=== PATIENT | female | born 1955 | race Caucasian/White ===

== ENCOUNTER 2016-05-31 08:42 | Emergency (ER) | payer SELFPAY ==
[~2016-05-31] VITALS: Ht 165.1 cm; Wt 70.0 kg
[~2016-05-31 08:42] MED LIST: ABIL5TAB6 PO; CLONAZEPAM PO; DILA2TAB2; PREG75 PO; SERT100 PO; VITA100018 PO
[2016-05-31 08:46] VITALS: BP 120/59; PULSE 77; RESP 20; TEMP 98.1; O2SAT 95
--- NOTE | 2016-05-31 08:50 | PD ---
Physical Exam Date Seen by Provider: May 31, 2016 Time Seen by Provider: 08:46 Narrative Pt is a 61 year old female presenting to the ED with c/o rash. Pt states her skin is itchy and burning. It started under her breasts, and has had a similar rash in the past. Pt has been using clotrimazole but states despite that it has gotten worse. Skin is weeping and raw. VSS, awaiting bed placement. Pt has no other complaints at this time. MDM Supervised Visit with SHANT: Casie Mena May 31, 2016 08:50
[2016-05-31] MEDS ORDERED: CLON0.5T PO (09:13)
[2016-05-31] MEDS ORDERED: ABIL30TA2 PO (09:13)
[2016-05-31] MEDS ORDERED: SERT-129 PO (09:13)
[2016-05-31] MEDS ORDERED: ARCA75CA INH (09:13)
[2016-05-31] MEDS ORDERED: CELE1CAP8 PO (09:13)
[2016-05-31] MEDS ORDERED: DILA2TAB2 PO (09:13)
[2016-05-31] MEDS ORDERED: [UNRECOGNIZED DRUG - OTHER] INH (09:13)
[2016-05-31] MEDS ORDERED: [UNRECOGNIZED DRUG - OTHER] INH (09:14)
[2016-05-31] MEDS ORDERED: FLUCONAZOLE 100 MG TAB PO ONE (09:30)
[2016-05-31] MEDS ORDERED: CEPHALEXIN MONOHYDRATE 500 MG CAP PO ONE (09:30)
[2016-05-31] MEDS ORDERED: CEPH-460 PO (09:38)
[2016-05-31] MEDS ORDERED: NYST10007 TOPICAL (09:38)
[2016-05-31] MEDS ORDERED: FLUC100T2 PO (09:38)
--- NOTE | 2016-05-31 09:38 | PD ---
HPI Chief Complaint: Skin Problem Time Seen by Provider: 09:14 Travel History International Travel<30 days: Yes Contact w/Intl Traveler<30days: [place] Traveled to: [email or web address] Traveled to known affect area: No History of Present Illness HPI Is a 61-year-old woman who presents to the emergency department complaining of painful irritated rash underneath her breasts. She does history of similar symptoms in the past. Rash is been ongoing for couple weeks been getting steadily worse. She describes painful weeping underneath the breasts. She's been using some antifungal cream without significant improvement. History Past Medical History Narrative Medical COPD Chronic back pain Tetanus Vaccination: < 5 Years Influenza Vaccination: Yes : 3 Para: 2 Social History Alcohol Use: No Tobacco Use: Yes (1/2 PACK DAILY) Allergies-Medications (Allergen,Severity, Reaction): Coded Allergies: No Known Allergies (Unverified , 12/14/11) Reported Meds & Prescriptions Reported Meds & Active Scripts Active Nystop Topical (Nystatin Topical) 100,000 Unit/Gm Powd 1 Applic TOPICAL Q12HR Keflex (Cephalexin) 500 Mg Cap 500 Mg PO Q8H Fluconazole 100 Mg Tab 100 Mg PO DAILY 28 Days Reported [karsten-salbutamol] 1 Inhaler INH QID [glycopyrronium] 1 Inhaler INH DAILY Arcapta Neohaler Inh (Indacaterol Powder Inh) 75 Mcg Cap 1 Inhaler INH DAILY Dilaudid (Hydromorphone HCl) 2 Mg Tab 2 Mg PO Q4H PRN Abilify (Aripiprazole) 30 Mg Tab 75 Mg PO TID Clonazepam 0.5 Mg Tab 0.5 Mg PO QID Celecoxib 200 Mg Cap 200 Mg PO DAILY Sertraline (Sertraline HCl) 100 Mg Tab 100 Mg PO DAILY Review of Systems Except as stated in HPI: all other systems reviewed are Neg Physical Exam Narrative GENERAL: 60 year-old woman, generally well-appearing, no acute distress. SKIN: Examination of the skin of the breast and chest reveals extensive maceration underneath both breasts with extensive erythema and redness spreading to the entirety of low breasts with tenderness, satellite lesions, draining fluid. CARDIOVASCULAR: Warm and well perfused. RESPIRATORY: Normal rate and effort. GASTROINTESTINAL: Abdomen soft, non-tender, nondistended. Hepatic and splenic margins not palpable. MUSCULOSKELETAL: No obvious deformities. Data Data Last Documented VS Vital Signs Date Time Temp Pulse Resp B/P Pulse Ox O2 Delivery O2 Flow Rate FiO2 05/31/16 08:46 98.1 77 20 120/59 95 Orders Fluconazole (Diflucan) (05/31/16 09:30) Cephalexin (Keflex) (05/31/16 09:30) Complete Blood Count With Diff (05/31/16 09:25) Basic Metabolic Panel (Bmp) (05/31/16 09:25) Iv Access Insert/Monitor (05/31/16 09:25) Labs Laboratory Tests Test 05/31/16 09:30 White Blood Count 16.8 TH/MM3 Red Blood Count 5.11 MIL/MM3 Hemoglobin 15.0 GM/DL Hematocrit 45.1 % Mean Corpuscular Volume 88.4 FL Mean Corpuscular Hemoglobin 29.4 PG Mean Corpuscular Hemoglobin 33.3 % Concent Red Cell Distribution Width 15.2 % Platelet Count 224 TH/MM3 Mean Platelet Volume 8.6 FL Neutrophils (%) (Auto) 88.4 % Lymphocytes (%) (Auto) 7.3 % Monocytes (%) (Auto) 3.1 % Eosinophils (%) (Auto) 0.7 % Basophils (%) (Auto) 0.5 % Neutrophils # (Auto) 14.8 TH/MM3 Lymphocytes # (Auto) 1.2 TH/MM3 Monocytes # (Auto) 0.5 TH/MM3 Eosinophils # (Auto) 0.1 TH/MM3 Basophils # (Auto) 0.1 TH/MM3 CBC Comment DIFF FINAL Differential Comment Sodium Level 139 MEQ/L Potassium Level 3.9 MEQ/L Chloride Level 103 MEQ/L Carbon Dioxide Level 30.2 MEQ/L Anion Gap 6 MEQ/L Blood Urea Nitrogen 12 MG/DL Creatinine 1.02 MG/DL Estimat Glomerular Filtration 55 ML/MIN Rate Random Glucose 120 MG/DL Calcium Level 8.5 MG/DL [facility] Medical Decision Making Medical Screen Exam Complete: Yes Emergency Medical Condition: Yes Interpretation(s) CBC remarkable for white count of 16.8 thousand BMP generally unremarkable. Differential Diagnosis Intertrigo, cellulitis, vasculitis, other Narrative Course Medical decision making INITIAL: 60 year-old woman presents to the emergency department what appears to be very extensive candidal intertrigo spreading out to the breast. She also has small lesions on her arms and legs. Blood sugar is normal. We'll check labs, treat with Keflex, fluconazole, nystatin powder, and will bring her back in 48 hours for wound check. Diagnosis Primary Impression: Candidal intertrigo Additional Instructions: Take Keflex and fluconazole as prescribed. Imperative to keep the underside of your breast dry. Use nystatin powder. Return to the emergency department or follow-up with your primary doctor in 48 hours for repeat wound check. Med/Other Pt SpecificInfo: Prescription(s) given Scripts Nystatin Topical (Nystop Topical)100,000 Unit/Gm Powd1 Applic TOPICAL Q12HR # 60 GM Ref 0 Prov:Cristhian Trujillo MD 05/31/16 Cephalexin (Keflex)500 Mg [id number] Mg PO Q8H #30 CAP Ref 0 Prov:Cristhian Trujillo MD 05/31/16 Fluconazole 100 Mg [id number] Mg PO DAILY 28 Days Ref 0 Prov:Cristhian Trujillo MD 05/31/16 Disposition: 01 DISCHARGE HOME Condition: Stable Cristhian Trujillo MD May 31, 2016 09:38
[2016-05-31 09:44] LABS: AUTOMATED NEUTROPHIL # 14.8 TH/MM3 (1.8-7.7); BASOPHIL # 0.1 TH/MM3 (0-0.2); BASOPHIL % 0.5 % (0.0-2.0); EOSINOPHIL # 0.1 TH/MM3 (0-0.4); EOSINOPHIL % 0.7 % (0.0-4.0); HEMATOCRIT 45.1 % (35.0-46.0); HEMO FLAGS DIFF FINAL; LYMPH % 7.3 % (9.0-44.0); LYMPHOCYTE # 1.2 TH/MM3 (1.0-4.8); MEAN CELL VOLUME 88.4 FL (80.0-100.0); MEAN CORPUSCULAR HEMOGLOBIN 29.4 PG (27.0-34.0); MEAN CORPUSCULAR HGB CONC 33.3 % (32.0-36.0); MONO % 3.1 % (0.0-8.0); NEUT % 88.4 % (16.0-70.0); PLATELET COUNT 224 TH/MM3 (150-450); RED BLOOD COUNT 5.11 MIL/MM3 (4.00-5.30); RED CELL DISTRIBUTION WIDTH 15.2 % (11.6-17.2); WHITE BLOOD COUNT 16.8 TH/MM3 (4.0-11.0)
[2016-05-31 10:03] LABS: BICARBONATE 30.2 MEQ/L (21.0-32.0); POTASSIUM 3.9 MEQ/L (3.5-5.1)
[2016-06-01] MEDS ORDERED: VENTAER INH (23:43)
== END 2016-05-31 11:06 | disposition home or self-care (01) ==
LOC: NEPC 08:42
DX: L30.4 Erythema intertrigo (principal); B37.2 Candidiasis of skin and nail
CPT/HCPCS: 80048; 85025; 99283